=== PATIENT | male | born 1975 | race American Indian/Alaskan Native ===

== ENCOUNTER 2021-11-18 10:19 | Emergency (ER) | payer SELFPAY ==
[2021-11-18 10:45] VITALS: BP 118/77
== END 2021-11-18 17:26 | disposition left against medical advice (07) ==
LOC: ED 10:19
DX: Z48.00 Encounter for change or removal of nonsurgical wound dressing (principal); Z53.21 Procedure and treatment not carried out due to patient leaving prior to being seen by health care provider